=== PATIENT | female | born 1955 | race Caucasian/White ===

== ENCOUNTER 2020-01-05 06:55 | Day surgery (SDC) | payer OTHER ==
[~2020-01-05 06:55] MED LIST: AMIODARONE HCL200 MG PO; CRESTOR20 MG PO; LANTUS SOL100 UNIT/1; LEVO-T25 MCG PO; NORVASC10 MG PO
== END 2020-01-05 17:00 | disposition home or self-care (01) ==
LOC: CIR.AMB 06:55
PROVIDERS: ATTEND Surgery
DX: D24.2 Benign neoplasm of left breast (principal); Z20.828 Contact with and (suspected) exposure to other viral communicable diseases